=== PATIENT | male | born 1990 | race Caucasian/White ===

== ENCOUNTER 2021-07-20 18:10 | Emergency (ER) | payer OTHER, BC ==
[~2021-07-20] VITALS: Ht 190.5 cm; Wt 134.9 kg
[2021-07-20 21:34] VITALS: BP 184/98
== END 2021-07-20 22:16 | disposition home or self-care (01) ==
LOC: M ED 18:10
DX: S06.0X0A Concussion without loss of consciousness, initial encounter (principal); W22.8XXA Striking against or struck by other objects, initial encounter; Y92.89 Other specified places as the place of occurrence of the external cause; Y99.0 Civilian activity done for income or pay